=== PATIENT | male | born 1990 | race African-American/Black ===

== ENCOUNTER 2019-05-21 22:20 | Outpatient (CLI) | payer MEDICAID, SELFPAY ==
[2019-05-23 15:45] LABS: Chlamydia Result Negative; Chlamydia Result Negative (Negative); GC Result Negative; GC Result Negative (Negative); Specimen Description CERVIX; Specimen Description URINE
== END 2019-05-21 22:40 ==
PROVIDERS: Visit Provider Family Medicine
DX: Z11.3 Encounter for screening for infections with a predominantly sexual mode of transmission (principal)
CPT/HCPCS: 87491; 87591

== ENCOUNTER 2020-06-23 11:21 | Outpatient (REF) | payer MEDICAID, SELFPAY ==
[2020-06-27 13:39] LABS: SARS-CoV-2 RNA Undetected (Undetected); SARS-CoV-2 Specimen Source Nasal
== END 2020-06-23 11:41 ==
LOC: NCHCN 11:21
PROVIDERS: Visit Provider Nurse Practitioner Family
DX: Z11.59 Encounter for screening for other viral diseases (principal)
CPT/HCPCS: U0003

== ENCOUNTER 2021-06-09 02:22 | Outpatient (CLI) | payer MEDICAID, SELFPAY ==
--- NOTE | 2021-06-09 | DI.US_ITS ---
Exam(s) US SOFT TISSUE HEAD OR NECK EXAM: US SOFT TISSUE HEAD OR NECK CLINICAL HISTORY: GLOBUS SENSATION,R09.89. TECHNIQUE: Ultrasound was performed using standard protocol. COMPARISON: No exams were available for comparison FINDINGS: Sonographic assessment utilizing grayscale and color Doppler imaging was performed and targeted to th e area of apparent clinical concern. The images submitted for interpretation do not reveal evidence of solid or significant cystic lesions . IMPRESSION: No obvious ultrasound abnormality at the site of apparent clinical concern in the lower anterior neck . If there is clinical concern that the probable may be related to the thyroid gland then I would re commend thyroid ultrasound examination be performed. DATA REPOSITORY:
== END 2021-06-09 02:42 ==
PROVIDERS: PCP Nurse Practitioner Family; Visit Provider Otolaryngology Otolaryngology/Facial Plastic Surgery
DX: R09.89 Other specified symptoms and signs involving the circulatory and respiratory systems (principal)
CPT/HCPCS: 76536

== ENCOUNTER 2022-08-21 01:56 | Outpatient (CLI) | payer MEDICAID, SELFPAY ==
--- NOTE | 2022-08-21 09:30 | DI.RAD_ITS ---
Exam(s) XR KNEE RT 3V AP,LAT,PARVEZ EXAM: XR KNEE RT 3V AP,LAT,PARVEZ CLINICAL HISTORY: RT KNEE PAIN, M25.561. TECHNIQUE: 2D digital imaging was performed of the right knee. Three views obtained. AP, lateral an d PA tunnel views were obtained. COMPARISON: No exams were available for comparison FINDINGS: BONES: No acute fracture is present. No bony destructive lesion is seen. JOINTS: The knee is normally aligned. No joint effusion is seen. SOFT TISSUE: Normal. IMPRESSION: Unremarkable radiographs of the right knee. DATA REPOSITORY: RADIATION DOSE DELIVERED:
--- NOTE | 2022-08-21 09:30 | DI.RAD_ITS ---
Exam(s) XR TIB/FIB RT EXAM: XR TIB/FIB RT CLINICAL HISTORY: RT KNEE PAIN, M25.561. TECHNIQUE: 2D digital imaging was performed of the right tibia and fibula. Four images were obtained . AP and lateral views were obtained. COMPARISON: No exams were available for comparison FINDINGS: BONES: No acute fracture is present. No bony destructive lesion is seen. Visualized portion of knee a nd ankle joints are unremarkable. SOFT TISSUE: Normal. IMPRESSION: Unremarkable radiographs of the right tibia and fibula. DATA REPOSITORY: RADIATION DOSE DELIVERED:
== END 2022-08-21 02:16 ==
LOC: DI 01:56
PROVIDERS: PCP Nurse Practitioner Family; Visit Provider Nurse Practitioner Family
DX: M25.561 Pain in right knee (principal)
CPT/HCPCS: 73562; 73590